=== PATIENT | female | born 1960 | race American Indian/Alaskan Native ===

== ENCOUNTER 2019-07-24 08:54 | Observation (INO) | payer BC, OTHER ==
[2019-07-24 10:16] LABS: Basophils % (Auto) 0.7 % (0.0-1.8); Eosinophils # (Auto) 0.2 K/mm3 (0.0-0.4); Eosinophils % (Auto) 4.1 % (0.0-4.3); Hematocrit 41.6 % (30.3-42.9); Hemoglobin 13.7 gm/dl (10.1-14.3); Lymphocytes # (Auto) 1.9 K/mm3 (1.2-5.4); Lymphocytes % (Auto) 37.1 % (13.4-35.0); Mean Corpuscular HGB Conc 33 % (30-34); Mean Corpuscular Volume 86 fl (79-97); Monocytes # (Auto) 0.4 K/mm3 (0.0-0.8); Monocytes % (Auto) 7.7 % (0.0-7.3); Platelet Count 302 K/mm3 (140-440); Red Blood Count 4.84 M/mm3 (3.65-5.03); Red Cell Distribution Width 13.5 % (13.2-15.2)
[2019-07-24 10:29] LABS: Alanine Aminotransferase 27 units/L (7-56); Albumin 4.4 g/dL (3.9-5); BUN/Creatinine Ratio 14; Blood Urea Nitrogen 10 mg/dL (7-17); Calcium 9.5 mg/dL (8.4-10.2); Hemolysis Index 14
--- NOTE | 2019-07-24 10:43 | Emergency Department Report ---
ED General Adult HPI - General Chief complaint: Chest Pain Stated complaint: CHEST PAIN Time Seen by Provider: 07/24/19 10:36 Source: patient Mode of arrival: Wheelchair Limitations: No Limitations - History of Present Illness Initial comments: 59-year-old female with a history of anemia and hypothyroidism presents with complaint of left-sided chest pain. Patient describes her chest pain as substernal in origin. Patient states that the chest pain radiates to her back and between her bilateral shoulder blades. Patient states he has had no prior exercise stress test in the past. Patient denies any recent travel. Patient denies any sick contacts. Patient states she feels as if there is a heavy 50 pound weight on her chest and this began today. Patient states that she has not had any stress test in the past. - Related Data Home Medications Medication Instructions Recorded Confirmed Last Taken Levothyroxine [Synthroid] 50 mcg PO QAM 04/10/13 06/28/13 05/14/13 Previous Rx's Medication Instructions Recorded Last Taken Type HYDROcodone/APAP 5-325 [Crane 1 each PO Q6HR PRN #15 tablet 04/10/13 05/14/13 Rx 5/325 mg] methOCARBAMOL [Robaxin] 750 mg PO Q8H PRN #15 tablet 04/10/13 05/14/13 Rx Cyclobenzaprine [Flexeril] 10 mg PO TID PRN #6 tablet 06/28/13 Unknown Rx Ibuprofen [Motrin] 600 mg PO Q8H PRN #20 tablet 06/28/13 Unknown Rx oxyCODONE /ACETAMINOPHEN [Percocet 1 tab PO Q6HR PRN #10 tablet 06/28/13 Unknown Rx 5/325 mg] Ibuprofen [Motrin 800 MG tab] 800 mg PO Q8HR PRN #30 tablet 12/28/14 Unknown Rx traMADoL [Ultram 50 MG tab] 50 mg PO Q6HR PRN #30 tablet 12/28/14 Unknown Rx Allergies Allergy/AdvReac Type Severity Reaction Status Date / Time codeine Allergy Hives Verified 04/10/13 08:20 Penicillins Allergy Unknown Verified 04/10/13 08:20 Sulfa (Sulfonamide Allergy Itching Verified 04/10/13 08:21 Antibiotics) ED Review of Systems ROS: Stated complaint: CHEST PAIN Other details as noted in HPI Constitutional: denies: chills, fever Eyes: denies: eye pain, eye discharge, vision change ENT: denies: ear pain, throat pain Respiratory: denies: cough, shortness of breath, wheezing Cardiovascular: chest pain Endocrine: no symptoms reported Gastrointestinal: denies: abdominal pain, nausea, diarrhea Genitourinary: denies: urgency, dysuria, discharge Musculoskeletal: denies: back pain, joint swelling, arthralgia Skin: denies: rash, lesions Neurological: denies: headache, weakness, paresthesias Psychiatric: denies: anxiety, depression Hematological/Lymphatic: denies: easy bleeding, easy bruising ED Past Medical Hx - Past Medical History Previous Medical History?: Yes Additional medical history: aneimia, hypothyroid - Surgical History Past Surgical History?: No Additional Surgical History: tubal ligation - Social History Smoking Status: Never Smoker - Medications Home Medications: Home Medications Medication Instructions Recorded Confirmed Last Taken Type HYDROcodone/APAP 5-325 [Crane 1 each PO Q6HR PRN #15 tablet 04/10/13 06/28/13 05/14/13 Rx 5/325 mg] Levothyroxine [Synthroid] 50 mcg PO QAM 04/10/13 06/28/13 05/14/13 History methOCARBAMOL [Robaxin] 750 mg PO Q8H PRN #15 tablet 04/10/13 06/28/13 05/14/13 Rx Cyclobenzaprine [Flexeril] 10 mg PO TID PRN #6 tablet 06/28/13 Unknown Rx Ibuprofen [Motrin] 600 mg PO Q8H PRN #20 tablet 06/28/13 Unknown Rx oxyCODONE /ACETAMINOPHEN [Percocet 1 tab PO Q6HR PRN #10 tablet 06/28/13 Unknown Rx 5/325 mg] Ibuprofen [Motrin 800 MG tab] 800 mg PO Q8HR PRN #30 tablet 12/28/14 Unknown Rx traMADoL [Ultram 50 MG tab] 50 mg PO Q6HR PRN #30 tablet 12/28/14 Unknown Rx ED Physical Exam - General Limitations: No Limitations General appearance: alert, other (mildly uncomfortable) - Head Head exam: Present: atraumatic, normocephalic - Eye Eye exam: Present: normal appearance - ENT ENT exam: Present: mucous membranes moist - Neck Neck exam: Present: normal inspection - Respiratory Respiratory exam: Present: normal lung sounds bilaterally. Absent: respiratory distress - Cardiovascular Cardiovascular Exam: Present: regular rate, normal rhythm. Absent: systolic mur mur, diastolic murmur, rubs, gallop - GI/Abdominal GI/Abdominal exam: Present: soft, normal bowel sounds - Extremities Exam Extremities exam: Present: normal inspection - Back Exam Back exam: Present: normal inspection - Neurological Exam Neurological exam: Present: alert, oriented X3 - Psychiatric Psychiatric exam: Present: normal affect, normal mood - Skin Skin exam: Present: warm, dry, intact, normal color. Absent: rash ED Course Vital Signs 07/24/19 07/24/19 09:03 15:41 Temperature 98.5 F Pulse Rate 71 58 L Respiratory 17 16 Rate Blood Pressure 140/77 Blood Pressure 146/77 [Left] O2 Sat by Pulse 100 99 Oximetry ED Medical Decision Making - Lab Data Result diagrams: 07/24/19 09:26 07/24/19 09:26 - EKG Data -: EKG Interpreted by [facility] EKG shows normal: sinus rhythm Rate: normal - EKG Data When compared to previous EKG there are: no significant change Interpretation: no acute changes - Medical Decision Making Patient received aspirin therapy while here in emergency department. Patient also received Crane therapy for PRN pain control. Patient CT shows no evidence of any acute aortic pathology. Patient to be admitted to the hospital service that she states she is having recurrent chest pain. - Differential Diagnosis STEMI; electrolyte abnormality; anemia; aortic dissection Critical care attestation.: If time is entered above; I have spent that time in minutes in the direct care of this critically ill patient, excluding procedure time. ED Disposition Clinical Impression: Chest pain Disposition: OP ADMIT IP TO THIS HOSP Is pt being admited?: Yes Does the pt Need Aspirin: No (Patient received Aspirin in ER) Condition: Stable Instructions: Chest Pain (ED) Referrals: PRIMARY CARE, [Primary Care Provider] - 3-5 Days Time of Disposition: 16:56 Print Language: PORTUGUESE
[2019-07-24] MEDS ORDERED: ASPIRIN EC 325 MG TAB PO ONE (11:05)
[2019-07-24] MEDS ORDERED: HYDROcodone/ACETAMINOPHEN 10-325MG TAB PO ONE (11:06)
--- NOTE | 2019-07-24 12:01 | XRay Report ---
CHEST 1 VIEW INDICATION / CLINICAL INFORMATION: Chest Pain. COMPARISON: None available. FINDINGS: SUPPORT DEVICES: None. HEART / MEDIASTINUM: No significant abnormality. LUNGS / PLEURA: No significant pulmonary or pleural abnormality. No pneumothorax. ADDITIONAL FINDINGS: No significant additional findings. IMPRESSION: 1. No acute findings. Signer Name: Sridhar Stevens MD Signed: 07/24/2019 11:57 AM Workstation Name: [id number]
--- NOTE | 2019-07-24 15:12 | Cat Scan Report ---
CT abdomen pelvis wo con INDICATION: chest pain with radiation to the back. TECHNIQUE: All CT scans at this location are performed using the following dose modulation technique: Automated exposure control. Helical slices were obtained through the abdomen and pelvis. COMPARISON: None available. FINDINGS: Abdomen: The liver, spleen, pancreas, adrenal glands, and kidneys show no acute abnormality. There is a moderate amount stool noted throughout the colon. There is no obstruction, inflammation, or free a ir. The aorta is normal in diameter. There is no adenopathy. There is no obstruction, inflammation, o r free air. There are no abnormal fluid collections. Pelvis: There are fibroids in the uterus. There is no obstruction or inflammation. There are no abnor mal fluid collections. The bowel is unremarkable. On review of bone windows, no acute osseous abnormalities are seen. IMPRESSION: 1. There is no obstruction, inflammation, or free air. There are no abnormal fluid collections. There are no renal or ureteral calculi. There is no hydronephrosis. Signer Name: Klever Mera MD Signed: 07/24/2019 3:08 PM Workstation Name: [id number]
--- NOTE | 2019-07-24 15:42 | Cat Scan Report ---
CT CHEST WITHOUT CONTRAST INDICATION / CLINICAL INFORMATION: chest pain with radiation to the back. TECHNIQUE: Axial CT images were obtained through the chest without contrast. Sagittal and coronal reformatted im ages. All CT scans at this location are performed using CT dose reduction for ALARA by means of autom ated exposure control. COMPARISON: None available. FINDINGS: HEART: No significant abnormality. THORACIC AORTA: No significant abnormality. MEDIASTINUM and SAURABH: No significant abnormality. LUNGS: No acute air space or interstitial disease. PLEURA: No significant pleural effusion. No pneumothorax. SKELETAL SYSTEM: No significant abnormality. UPPER ABDOMEN: No significant abnormality. ADDITIONAL FINDINGS: None. IMPRESSION: No significant abnormality. Signer Name: Sorin Pugh Jr, MD Signed: 07/24/2019 3:37 PM Workstation Name: [id number]
--- NOTE | 2019-07-24 18:49 | History and Physical Report ---
History of Present Illness Date of examination: 07/24/19 Date of admission: 07/24/19 16:57 Chief complaint: Chest pain History of present illness: 59-year-old female with a history of anemia and hypothyroidism presents with complaint of left-sided chest pain. Patient describes her chest pain as substernal in origin. Patient states that the chest pain radiates to her back and between her bilateral shoulder blades. Patient states he has had no prior exercise stress test in the past. Patient denies any recent travel. Patient denies any sick contacts. Patient states she feels as if there is a heavy 50 pound weight on her chest and this began today. Patient states that she has not had any stress test in the past. Past Medical History Previous Medical History?: Yes Additional medical history: aneimia, hypothyroid Surgical History Past Surgical History?: No Additional Surgical History: tubal ligation Social History Smoking Status: Never Smoker Family History Htn - Medications Home Medications: Home Medications Medication Instructions Recorded Confirmed Last Taken Type HYDROcodone/APAP 5-325 [[place]ale 1 each PO Q6HR PRN #15 tablet 04/10/13 06/28/13 05/14/13 Rx 5/325 mg] Levothyroxine [Synthroid] 50 mcg PO QAM 04/10/13 06/28/13 05/14/13 History methOCARBAMOL [Robaxin] 750 mg PO Q8H PRN #15 tablet 04/10/13 06/28/13 05/14/13 Rx Cyclobenzaprine [Flexeril] 10 mg PO TID PRN #6 tablet 06/28/13 Unknown Rx Ibuprofen [Motrin] 600 mg PO Q8H PRN #20 tablet 06/28/13 Unknown Rx oxyCODONE /ACETAMINOPHEN [Percocet 1 tab PO Q6HR PRN #10 tablet 06/28/13 Unknown Rx 5/325 mg] Ibuprofen [Motrin 800 MG tab] 800 mg PO Q8HR PRN #30 tablet 12/28/14 Unknown Rx traMADoL [Ultram 50 MG tab] 50 mg PO Q6HR PRN #30 tablet 12/28/14 Unknown Rx Review of Systems ROS: Stated complaint: CHEST PAIN Other details as noted in HPI Constitutional: denies: chills, fever Eyes: denies: eye pain, eye discharge, vision change ENT: denies: ear pain, throat pain Respiratory: denies: cough, shortness of breath, wheezing Cardiovascular: chest pain Endocrine: no symptoms reported Gastrointestinal: denies: abdominal pain, nausea, diarrhea Genitourinary: denies: urgency, dysuria, discharge Musculoskeletal: denies: back pain, joint swelling, arthralgia Skin: denies: rash, lesions Neurological: denies: headache, weakness, paresthesias Psychiatric: denies: anxiety, depression Hematological/Lymphatic: denies: easy bleeding, easy bruising Medications and Allergies Allergies Allergy/AdvReac Type Severity Reaction Status Date / Time codeine Allergy Hives Verified 04/10/13 08:20 Penicillins Allergy Unknown Verified 04/10/13 08:20 Sulfa (Sulfonamide Allergy Itching Verified 04/10/13 08:21 Antibiotics) Home Medications Medication Instructions Recorded Confirmed Last Taken Type HYDROcodone/APAP 5-325 [Dale 1 each PO Q6HR PRN #15 tablet 04/10/13 06/28/13 05/14/13 Rx 5/325 mg] Levothyroxine [Synthroid] 50 mcg PO QAM 04/10/13 06/28/13 05/14/13 History methOCARBAMOL [Robaxin] 750 mg PO Q8H PRN #15 tablet 04/10/13 06/28/13 05/14/13 Rx Cyclobenzaprine [Flexeril] 10 mg PO TID PRN #6 tablet 06/28/13 Unknown Rx Ibuprofen [Motrin] 600 mg PO Q8H PRN #20 tablet 06/28/13 Unknown Rx oxyCODONE /ACETAMINOPHEN [Percocet 1 tab PO Q6HR PRN #10 tablet 06/28/13 Unknown Rx 5/325 mg] Ibuprofen [Motrin 800 MG tab] 800 mg PO Q8HR PRN #30 tablet 12/28/14 Unknown Rx traMADoL [Ultram 50 MG tab] 50 mg PO Q6HR PRN #30 tablet 12/28/14 Unknown Rx Exam - Constitutional Vitals: Temp Pulse Resp BP Pulse Ox 98.5 F 63 16 126/73 96 07/24/19 09:03 07/24/19 18:05 07/24/19 18:05 07/24/19 18:05 07/24/19 18:05 General appearance: Present: no acute distress, well-nourished - EENT Eyes: Present: PERRL ENT: hearing intact, clear oral mucosa - Neck Neck: Present: supple, normal ROM - Respiratory Respiratory effort: normal Respiratory: bilateral: CTA Details: No costochondral tenderness - Cardiovascular Heart rate: 78 Rhythm: regular Heart Sounds: Present: S1 & S2. Absent: rub, click - Extremities Extremities: no ischemia, pulses intact, pulses symmetrical, No edema Peripheral Pulses: within normal limits - Abdominal General gastrointestinal: Present: soft, non-tender, non-distended, normal bowel sounds Female genitourinary: Present: normal - Rectal Rectal Exam: deferred - Integumentary Integumentary: Present: clear, warm, dry - Musculoskeletal Musculoskeletal: gait normal, strength equal bilaterally - Psychiatric Psychiatric: appropriate mood/affect, intact judgment & insight - Neurologic Neurologic: CNII-XII intact, moves all extremities - Allied Health Allied health notes reviewed: nursing, case management JAZIEL score - Jaziel Score Age > 65: (0) No Aspirin use within the Past 7 Days: (1) Yes 3 or more CAD Risk Factors: (0) No 2 or more Angina events in past 24 hrs: (0) No Known CAD with more than 50% Stenosis: (0) No Elevated Cardiac Markers: (0) No ST Deviation Greater than 0.5mm: (0) No JAZIEL Score: 1 Results - Labs CBC & Chem 7: 07/25/19 06:54 07/24/19 09:26 Labs: Laboratory Last Values WBC 5.2 K/mm3 (4.5-11.0) 07/24/19 09:26 RBC 4.84 M/mm3 (3.65-5.03) 07/24/19 09:26 Hgb 13.7 gm/dl (10.1-14.3) 07/24/19 09:26 Hct 41.6 % (30.3-42.9) 07/24/19 09:26 MCV 86 fl (79-97) 07/24/19 09:26 MCH 28 pg (28-32) 07/24/19 09:26 MCHC 33 % (30-34) 07/24/19 09:26 RDW 13.5 % (13.2-15.2) 07/24/19 09:26 Plt Count 302 K/mm3 (140-440) 07/24/19 09:26 Lymph % (Auto) 37.1 % (13.4-35.0) H 07/24/19 09:26 [place] % (Auto) 7.7 % (0.0-7.3) H 07/24/19 09:26 Eos % (Auto) 4.1 % (0.0-4.3) 07/24/19 09:26 Baso % (Auto) 0.7 % (0.0-1.8) 07/24/19 09: Lymph # 1.9 K/mm3 (1.2-5.4) 07/24/19 09:26 [place] # 0.4 K/mm3 (0.0-0.8) 07/24/19 09: Eos # 0.2 K/mm3 (0.0-0.4) 07/24/19 09: Baso # 0.0 K/mm3 (0.0-0.1) 07/24/19 09: Seg Neutrophils % 50.4 % (40.0-70.0) 07/24/19 09: Seg Neutrophils # 2.6 K/mm3 (1.8-7.7) 07/24/19 09:26 PT 13.3 Sec. (12.2-14.9) 07/24/19 09: INR 1.00 (0.87-1.13) 07/24/19 09:26 APTT 32.0 Sec. (24.2-36.6) 07/24/19 09:26 Sodium 140 mmol/L (137-145) 07/24/19 09:26 Potassium 3.9 mmol/L (3.6-5.0) 07/24/19 09: Chloride 103.0 mmol/L (98-107) 07/24/19 09:26 Carbon Dioxide 21 mmol/L (22-30) L 07/24/19 09:26 Anion Gap 20 mmol/L 07/24/19 09:26 BUN 10 mg/dL (7-17) 07/24/19 09:26 Creatinine 0.7 mg/dL (0.7-1.2) 07/24/19 09:26 Estimated GFR > 60 ml/min 07/24/19 09:26 BUN/Creatinine Ratio 14 % 07/24/19 09: Glucose 119 mg/dL (65-100) H 07/24/19 09:26 Calcium 9.5 mg/dL (8.4-10.2) 07/24/19 09:26 Total Bilirubin 0.20 mg/dL (0.1-1.2) 07/24/19 09:26 AST 23 units/L (5-40) 07/24/19 09:26 ALT 27 units/L (7-56) 07/24/19 09:26 Alkaline Phosphatase 94 units/L (35-129) 07/24/19 09:26 Troponin T < 0.010 ng/mL (0.00-0.029) 07/24/19 09:26 Total Protein 7.9 g/dL (6.3-8.2) 07/24/19 09:26 Albumin 4.4 g/dL (3.9-5) 07/24/19 09:26 Albumin/Globulin Ratio 1.3 % 07/24/19 09:26 - Imaging and Cardiology EKG: report reviewed (NSR 63/min) Chest x-ray: report reviewed (NAF) CT scan - abdomen: report reviewed (NAF) CT scan - chest: report reviewed (NAF) Assessment and Plan Advance Directives: Yes (Full code) VTE prophylaxis?: Chemical Plan of care discussed with patient/family: Yes - Patient Problems (1) Chest pain Current Visit: Yes Status: Acute Qualifiers: Ischemic chest pain type: unspecified angina pectoris type Plan to address problem: Chest pain protocol Serial Troponins Stress test in AM Obs status Costochondritis and GERD in Differential diagnosis (2) Hypothyroidism (acquired) Current Visit: Yes Status: Chronic Plan to address problem: Cont synthyroid Chech tsh level (3) Arthritis Current Visit: Yes Status: Chronic Plan to address problem: On NSAIDS (4) DVT prophylaxis Current Visit: Yes Status: Acute Plan to address problem: On Heparin and GI prophylaxis
[2019-07-24] MEDS ORDERED: CYCLOBENZAPRINE 10 MG TAB PO PRN (18:50)
[2019-07-24] MEDS ORDERED: IBUPROFEN 600 MG TAB PO PRN (18:50)
[2019-07-24] MEDS ORDERED: IBUPROFEN 800 MG TAB PO PRN (18:50)
[2019-07-24] MEDS ORDERED: traMADol 50 MG TAB PO PRN (18:50)
[2019-07-24] MEDS ORDERED: HYDROmorphone 1 MG/1 ML INJ IV PRN (18:51)
[2019-07-24] MEDS ORDERED: ONDANSETRON 4 MG/2 ML INJ IV PRN (18:51)
[2019-07-24] MEDS ORDERED: ACETAMINOPHEN 325 MG TAB PO PRN (18:51)
[2019-07-24] MEDS ORDERED: METOCLOPRAMIDE 10 MG/2 ML INJ IV PRN (18:51)
[2019-07-24] MEDS ORDERED: HYDROcodone/ACETAMINOPHEN 5-325 MG TAB PO PRN (19:16)
[2019-07-24] MEDS ORDERED: oxyCODONE /ACETAMINOPHEN 5-325MG TAB PO PRN (19:17)
[2019-07-24] MEDS: FAMOTIDINE 20 MG TAB PO SCH (22:09)
[2019-07-25] MEDS ORDERED: LEVOTHYROXINE 50 MCG TAB PO SCH (06:00)
[2019-07-25 07:16] LABS: Basophils % (Auto) 0.5 % (0.0-1.8); Eosinophils # (Auto) 0.3 K/mm3 (0.0-0.4); Eosinophils % (Auto) 6.7 % (0.0-4.3); Hematocrit 41.3 % (30.3-42.9); Hemoglobin 13.6 gm/dl (10.1-14.3); Lymphocytes # (Auto) 1.7 K/mm3 (1.2-5.4); Lymphocytes % (Auto) 40.9 % (13.4-35.0); Mean Corpuscular HGB Conc 33 % (30-34); Mean Corpuscular Volume 86 fl (79-97); Monocytes # (Auto) 0.4 K/mm3 (0.0-0.8); Monocytes % (Auto) 10.4 % (0.0-7.3); Platelet Count 254 K/mm3 (140-440); Red Blood Count 4.79 M/mm3 (3.65-5.03); Red Cell Distribution Width 13.5 % (13.2-15.2)
[2019-07-25 07:46] LABS: Alanine Aminotransferase 21 units/L (7-56); Albumin 3.7 g/dL (3.9-5); BUN/Creatinine Ratio 15; Blood Urea Nitrogen 9 mg/dL (7-17); Calcium 9.1 mg/dL (8.4-10.2); Hemolysis Index 7
[2019-07-25] MEDS ORDERED: REGADENOSON 0.4 MG/5 ML INJ IV ONE (08:14)
[2019-07-25] MEDS: FAMOTIDINE 20 MG TAB PO SCH (10:25)
--- NOTE | 2019-07-25 10:25 | Treadmill Report ---
ORDERING PHYSICIAN: Dr. Isa Duenas. INDICATION: Chest pain. FINDINGS: There is no scintigraphic evidence of myocardial ischemia. The left ventricle is normal in size and systolic function. The left ventricular ejection fraction is measured at 67%. Normal wall motion and wall thickening is noted on gated imaging. CONCLUSION: Normal perfusion scan. JOB# [id number] [email or web address]/[email or web address]
--- NOTE | 2019-07-25 10:42 | Progress Note ---
Hospitalist Physical - Constitutional Vitals: Temp Pulse Resp BP Pulse Ox 98.5 F 59 L 18 115/73 98 07/25/19 04:29 07/25/19 04:29 07/25/19 04:29 07/25/19 09:14 07/25/19 04:29 General appearance: Present: no acute distress, well-nourished JAZIEL score - Jaziel Score Age > 65: (0) No Aspirin use within the Past 7 Days: (1) Yes 3 or more CAD Risk Factors: (0) No 2 or more Angina events in past 24 hrs: (0) No Known CAD with more than 50% Stenosis: (0) No Elevated Cardiac Markers: (0) No ST Deviation Greater than 0.5mm: (0) No JAZIEL Score: 1 Results - Labs CBC & Chem 7: 07/25/19 06:54 07/25/19 06:54 Labs: Laboratory Last Values WBC 4.2 K/mm3 (4.5-11.0) L 07/25/19 06:54 RBC 4.79 M/mm3 (3.65-5.03) 07/25/19 06:54 Hgb 13.6 gm/dl (10.1-14.3) 07/25/19 06:54 Hct 41.3 % (30.3-42.9) 07/25/19 06:54 MCV 86 fl (79-97) 07/25/19 06:54 MCH 29 pg (28-32) 07/25/19 06:54 MCHC 33 % (30-34) 07/25/19 06:54 RDW 13.5 % (13.2-15.2) 07/25/19 06:54 Plt Count 254 K/mm3 (140-440) 07/25/19 06:54 Lymph % (Auto) 40.9 % (13.4-35.0) H 07/25/19 06:54 [place] % (Auto) 10.4 % (0.0-7.3) H 07/25/19 06:54 Eos % (Auto) 6.7 % (0.0-4.3) H 07/25/19 06:54 Baso % (Auto) 0.5 % (0.0-1.8) 07/25/19 06:54 Lymph # 1.7 K/mm3 (1.2-5.4) 07/25/19 06:54 [place] # 0.4 K/mm3 (0.0-0.8) 07/25/19 06:54 Eos # 0.3 K/mm3 (0.0-0.4) 07/25/19 06:54 Baso # 0.0 K/mm3 (0.0-0.1) 07/25/19 06:54 Seg Neutrophils % 41.5 % (40.0-70.0) 07/25/19 06:54 Seg Neutrophils # 1.7 K/mm3 (1.8-7.7) L 07/25/19 06:54 PT 13.3 Sec. (12.2-14.9) 07/24/19 09:26 INR 1.00 (0.87-1.13) 07/24/19 09:26 APTT 32.0 Sec. (24.2-36.6) 07/24/19 09:26 Sodium 141 mmol/L (137-145) 07/25/19 06:54 Potassium 3.8 mmol/L (3.6-5.0) 07/25/19 06:54 Chloride 106.6 mmol/L (98-107) 07/25/19 06:54 Carbon Dioxide 19 mmol/L (22-30) L 07/25/19 06:54 Anion Gap 19 mmol/L 07/25/19 06:54 BUN 9 mg/dL (7-17) 07/25/19 06:54 Creatinine 0.6 mg/dL (0.7-1.2) L 07/25/19 06:54 Estimated GFR > 60 ml/min 07/25/19 06:54 BUN/Creatinine Ratio 15 % 07/25/19 06:54 Glucose 84 mg/dL (65-100) 07/25/19 06:54 Hemoglobin A1c 5.8 % (4-6) 07/24/19 19:17 Calcium 9.1 mg/dL (8.4-10.2) 07/25/19 06:54 Total Bilirubin 0.30 mg/dL (0.1-1.2) 07/25/19 06:54 AST 18 units/L (5-40) 07/25/19 06:54 ALT 21 units/L (7-56) 07/25/19 06:54 Alkaline Phosphatase 66 units/L (35-129) 07/25/19 06:54 Troponin T < 0.010 ng/mL (0.00-0.029) 07/25/19 06:54 Total Protein 7.1 g/dL (6.3-8.2) 07/25/19 06:54 Albumin 3.7 g/dL (3.9-5) L 07/25/19 06:54 Albumin/Globulin Ratio 1.1 % 07/25/19 06:54 [place]/IV: Voiding Method Toilet IV Catheter Type [Right Hand] INT / Saline Lock IV Catheter Type [Left Forearm INT / Saline Lock ] Active Medications - Current Medications Current Medications: Generic Name Dose Route Start Last Admin Trade Name Freq PRN Reason Stop Dose Admin Acetaminophen 650 mg 07/24/19 18:51 Tylenol PO Q4H PRN Pain MILD(1-3)/Fever >100.5/MAERS Acetaminophen/Hydrocodone Bitart 1 each 07/24/19 19:16 [place] 5/325 PO Q4H PRN Pain, Moderate (4-6) Cyclobenzaprine HCl 10 mg 07/24/19 18:50 Flexeril PO TID PRN Spasms Famotidine 20 mg 07/24/19 22:00 07/25/19 10:25 Pepcid PO 20 mg BID HOME Administration Hydromorphone HCl 0.5 mg 07/24/19 18:51 07/24/19 20:31 Dilaudid IV 0.5 mg Q3H PRN Administration Pain , Severe (7-10) Levothyroxine Sodium 50 mcg 07/25/19 06:00 07/25/19 05:10 Synthroid PO 50 mcg 0600 HOME Administration Methocarbamol 750 mg 07/24/19 18:50 Robaxin PO Q8H PRN Spasms Metoclopramide HCl 10 mg 07/24/19 18:51 Reglan IV Q6H PRN Nausea And Vomiting Ondansetron HCl 4 mg 07/24/19 18:51 Zofran IV Q8H PRN Nausea And Vomiting Oxycodone/Acetaminophen 1 tab 07/24/19 19:17 Percocet 5/325 PO Q4H PRN Pain, Moderate (4-6) Sodium Chloride 10 ml 07/24/19 22:00 07/25/19 10:25 Sodium Chloride Flush Syringe 10 Ml IV 10 ml BID HOME Administration Sodium Chloride 10 ml 07/24/19 18:51 Sodium Chloride Flush Syringe 10 Ml IV PRN PRN LINE FLUSH
--- NOTE | 2019-07-25 13:10 | Discharge Summary ---
Providers - Providers Date of Admission: 07/24/19 16:57 Date of discharge: 07/25/19 Attending physician: ANDREA VILLAGRAN Primary care physician: [facility] ASSISTANT Hospitalization Condition: Stable Pertinent studies: Chest x-ray; no acute findings CT abdomen and pelvis; no obstruction inflammation or free air no abnormal fluid collection no acute abnormality CT head without contrast; no acute abnormality Exercise stress test; normal scan, no ischemia. EF 67% Hospital course: --Atypical chest pain; probably noncardiac Stress test negative for reversible ischemia EF normal --GERD; probably the cause of chest pain Pepcid, advised to avoid NSAIDs --Chronic pain syndrome; Supportive care, pain management --History of hypothyroidism; Continue Synthroid --Obesity; BMI 34 Advised weight reduction Hemodynamically and clinically stable at discharge Disposition: DC-30 STILL A PATIENT Time spent for discharge: 32 min Exam - Constitutional Vitals: Temp Pulse Resp BP Pulse Ox 98.5 F 59 L 18 115/73 98 07/25/19 04:29 07/25/19 04:29 07/25/19 04:29 07/25/19 09:14 07/25/19 04:29 Plan Diet: other (Cardiac diet) Additional Instructions: If you have recurrent chest pain or shortness of breath, contact MD or go to emergency room. Advised exercise and weight reduction when medically stable Follow up with: RAY BRIGGS MD [Primary Care Provider] - 3-5 Days AVELINA BREAUX MD [Staff Physician] - 7 Days
[2019-07-25 14:40] VITALS: BP 101/52
== END 2019-07-25 17:52 | disposition home or self-care (01) ==
LOC: ED 08:54 → 4A 16:57 → INTOOBSV 16:57
PROVIDERS: ADMIT Internal Medicine; ATTEND Internal Medicine
DX: R07.89 Other chest pain (principal); M19.90 Unspecified osteoarthritis, unspecified site; K21.9 Gastro-esophageal reflux disease without esophagitis; G89.4 Chronic pain syndrome; E66.9 Obesity, unspecified; E03.9 Hypothyroidism, unspecified; D64.9 Anemia, unspecified; Z98.51 Tubal ligation status; Z79.899 Other long term (current) drug therapy; Z88.0 Allergy status to penicillin; Z88.2 Allergy status to sulfonamides; Z88.5 Allergy status to narcotic agent; Z68.34 Body mass index [BMI] 34.0-34.9, adult
CPT/HCPCS: 36415; 71045; 71250; 74176; 78452; 80053; 83036; 84443; 84484; 85025; 85610; 85730; 93005; 93010; 93017; 96374; 99285; A9502; G0378; J1170; J2785

== ENCOUNTER 2022-02-03 08:11 | Emergency (ER) | payer OTHER ==
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
== END 2022-02-03 19:20 | disposition left against medical advice (07) ==
LOC: ED 08:11
DX: M54.9 Dorsalgia, unspecified (principal); Z53.21 Procedure and treatment not carried out due to patient leaving prior to being seen by health care provider; Z88.0 Allergy status to penicillin; Z88.1 Allergy status to other antibiotic agents; V89.2XXA Person injured in unspecified motor-vehicle accident, traffic, initial encounter; Y93.89 Activity, other specified; Y92.89 Other specified places as the place of occurrence of the external cause; Y99.8 Other external cause status
CPT/HCPCS: 99281